=== PATIENT | male | born 1970 | race American Indian/Alaskan Native ===

== ENCOUNTER 2017-11-10 01:09 | Emergency (ER) | payer SELFPAY ==
[2017-11-10 02:43] VITALS: BP 119/72
== END 2017-11-10 09:08 | disposition left against medical advice (07) ==
LOC: ED 01:09
DX: M79.604 Pain in right leg (principal); R11.2 Nausea with vomiting, unspecified; R19.7 Diarrhea, unspecified; Z53.21 Procedure and treatment not carried out due to patient leaving prior to being seen by health care provider